=== PATIENT | male | born 1975 | race African-American/Black ===

== ENCOUNTER 2016-11-20 23:57 | Emergency (ER) | payer MEDICAID ==
[~2016-11-20] VITALS: Ht 193 cm; Wt 77.1 kg
[2016-11-21 00:13] VITALS: BP 105/67
[2016-11-21] MEDS ORDERED: IBUPROFEN 600 MG TAB PO ONE (01:30)
== END 2016-11-21 01:39 | disposition home or self-care (01) ==
LOC: ER 23:57
DX: L02.01 Cutaneous abscess of face (principal); J45.909 Unspecified asthma, uncomplicated; F17.210 Nicotine dependence, cigarettes, uncomplicated; F12.10 Cannabis abuse, uncomplicated

== ENCOUNTER 2018-08-19 19:47 | Emergency (ER) | payer SELFPAY ==
[~2018-08-19] VITALS: Ht 195.6 cm; Wt 79.4 kg
[2018-08-19 22:08] VITALS: BP 122/72
[2018-08-19] MEDS ORDERED: cefTRIAXone SOD 1,000 MG VL IM ONE (23:00)
[2018-08-19] MEDS ORDERED: methylPREDNISolone SOD SUCC 125 MG/2 ML VL IM ONE (23:00)
== END 2018-08-20 01:36 | disposition home or self-care (01) ==
LOC: ER 19:54
DX: K08.89 Other specified disorders of teeth and supporting structures (principal); J45.909 Unspecified asthma, uncomplicated; F17.210 Nicotine dependence, cigarettes, uncomplicated; F12.10 Cannabis abuse, uncomplicated
CPT/HCPCS: 96372; 99283; J0696; J2930